=== PATIENT | male | born 1965 | race Caucasian/White ===

== ENCOUNTER 2017-07-26 10:50 | Emergency (ER) | payer BC, OTHER ==
[2017-07-26] MEDS ORDERED: ORPHENADRINE 30 MG/ML 2 ML VIAL IM STA (11:45)
[2017-07-26] MEDS ORDERED: KETOROLAC 60 MG/2 ML VIAL IM STA (11:45)
[2017-07-26 12:06] LABS: Appearance,Urine Clear (Clear); Bilirubin,Urine Negative (Negative); Blood,Urine Negative (Negative); Color,Urine Yellow; Glucose,Urine (UA) Negative (Negative); Ketones,Urine Negative (Negative); Leukocyte Esterase,Urine Negative (Negative); Nitrite,Urine Negative (Negative); PH, Urine 5.5 (5.0-8.0); Protein,Urine Negative (Negative); Specific Gravity,Urine 1.011 (1.001-1.035); Urobilinogen,Urine <2.0 mg/dL (<2.0)
--- NOTE | 2017-07-26 12:27 | XR ---
EXAMINATION TYPE: XR lumbar spine 2 or 3V , 3 VIEWS DATE OF EXAM ORDERED: 07/26/2017 HISTORY: Pain. COMPARISON: None. FINDINGS: Vertebral body height and alignment are maintained. There is mild hypertrophic spondylosis at T11-12 and L3-4 there is mild facet arthropathy in the L5-S1 facets. The pedicles are intact.. IMPRESSION: 1. NO ACUTE OSSEOUS LESION. 2. MILD DEGENERATIVE CHANGE.
--- NOTE | 2017-07-26 12:28 | XR ---
EXAMINATION TYPE: XR thoracic spine 2V , 4 VIEWS DATE OF EXAM ORDERED: 07/26/2017 HISTORY: Pain. COMPARISON: None. FINDINGS: Number thoracic spine is not well visualized and the lateral projection. Vertebral body height and alignment are maintained. No fractures are seen. There is mild hypertrophic spondylosis in the mid to lower dorsal spine. The pedicles appear intact. Paraspinal soft tissues ar e normal. IMPRESSION: 1. NO ACUTE OSSEOUS LESION. 2. MILD DEGENERATIVE CHANGE.
--- NOTE | 2017-07-26 12:33 | ED ---
Back Pain HPI - General Chief Complaint: Back Pain/Injury Stated Complaint: UPPER BACK PAIN, RT SIDE GROIN PAIN Time Seen by Provider: 07/26/17 11:29 Source: patient, RN notes reviewed, old records reviewed Limitations: no limitations - History of Present Illness Initial Comments: 52-year-old male presents for his department with 3 days of mid thoracic and lower back pain with certain movements. No urinary symptoms. No saddle and seems to be no traumas or falls. He reports is worse with eating of the morning or certain movements was laying in bed. He denies any abdominal pain, nausea or vomiting or fever. Patient states that he's had no known history of degenerative disc disease. 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 He reports taking meloxicam for chronic arthritis pain. Reports that helped somewhat but is not been helping over the past few days.Patient denies any recent fever, chills, shortness of breath, chest pain, back pain, abdominal pain , nausea vomiting, numbness or tingling, dysuria or hematuria, constipation or diarrhea, headaches or visual changes, or any other current symptoms - Related Data Home Medications Medication Instructions Recorded Confirmed Lisinopril-Hctz 20-25 mg 1 tab PO DAILY 12/14/14 07/26/17 [Zestoretic 20-25] amLODIPine [Norvasc] 10 mg PO DAILY 12/14/14 07/26/17 Atorvastatin [Lipitor] 40 mg PO DAILY 07/26/17 07/26/17 Meloxicam 7.5 mg PO HS 07/26/17 07/26/17 Vitamin B Complex 1 cap PO DAILY 07/26/17 07/26/17 Previous Rx's Medication Instructions Recorded Cyclobenzaprine [Flexeril] 10 mg PO TID #15 tab 07/26/17 Dexamethasone 0.75 mg PO DAILY #12 tab 07/26/17 HYDROcodone/APAP 5-325MG [Lee 1 tab PO Q6HR PRN #15 tab 07/26/17 5-325] Allergies Allergy/AdvReac Type Severity Reaction Status Date / Time bee venom protein (honey bee) Allergy Swelling Verified 07/26/17 12:23 Review of Systems ROS Statement: Those systems with pertinent positive or pertinent negative responses have been documented in the HPI. ROS Other: All systems not noted in ROS Statement are negative. Past Medical History Past Medical History: Hyperlipidemia, Hypertension History of Any Multi-Drug Resistant Organisms: None Reported Past Surgical History: Appendectomy, Orthopedic Surgery, Tonsillectomy Additional Past Surgical History / Comment(s): LEFT KNEE, BENIGN CYST REMOVED FROM SCALP Past Anesthesia/Blood Transfusion Reactions: No Reported Reaction Past Psychological History: No Psychological Hx Reported Smoking Status: Current every day smoker Past Alcohol Use History: Occasional Past Drug Use History: None Reported General Exam - General Exam Comments Initial Comments: His is a 52-year-old male. No distress. Limitations: no limitations General appearance: alert, in no apparent distress Head exam: Present: atraumatic, normocephalic, normal inspection Eye exam: Present: normal appearance, PERRL, EOMI. Absent: scleral icterus, conjunctival injection, periorbital swelling ENT exam: Present: normal exam, mucous membranes moist Neck exam: Present: normal inspection. Absent: tenderness, meningismus, lymphadenopathy Respiratory exam: Present: normal lung sounds bilaterally. Absent: respiratory distress, wheezes, rales, rhonchi, stridor Cardiovascular Exam: Present: regular rate, normal rhythm, normal heart sounds. Absent: systolic murmur, diastolic murmur, rubs, gallop, clicks GI/Abdominal exam: Present: soft, normal bowel sounds. Absent: distended, tenderness, guarding, rebound, rigid Extremities exam: Present: normal inspection, full ROM, normal capillary refill. Absent: tenderness, pedal edema, joint swelling, calf tenderness Back exam: Present: normal inspection, paraspinal tenderness (Right-sided thoracic and lumbar spine paraspinal tenderness.) Neurological exam: Present: alert, oriented X3, CN II-XII intact Psychiatric exam: Present: normal affect, normal mood Skin exam: Present: warm, dry, intact, normal color. 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 No urinary symptoms. No numbness or tingling down the leg. Patient's urinalysis negative for any signs of infection. Lumbar and thoracic spine x-ray were reviewed and show no acute fractures or dislocations. Patient was reports he feels better after IM Norflex , and Toradol. I discussed that I'll discharge the patient with a round of steroids for nerve inflammation as well as pain medication and muscle relaxers. Discussed continuing and temperature medication such as Motrin and continues meloxicam for arthritic pain. Discussed falling up with primary care provider as well as report specialist. Patient agrees treatment plan will comply. Return parameters were discussed. - Lab Data Lab Results 07/26/17 Range/Units 11:48 Urine Color Yellow Urine Appearance Clear (Clear) Urine pH 5.5 (5.0-8.0) Ur Specific [place] 1.011 (1.001-1.035) Urine Protein Negative (Negative) Urine Glucose (UA) Negative (Negative) Urine Ketones Negative (Negative) Urine Blood Negative (Negative) Urine Nitrite Negative (Negative) Urine Bilirubin Negative (Negative) Urine Urobilinogen <2.0 (<2.0) mg/dL Ur Leukocyte Esterase Negative (Negative) - Radiology Data Radiology results: report reviewed Thoracic spine x-ray lumbar spine x-ray reviewed. No significant abnormalities noted. Disposition Clinical Impression: Spasm of thoracic back muscle, Lumbar strain Disposition: HOME SELF-CARE Condition: Good Instructions: Acute Low Back Pain (ED) Additional Instructions: Patient resting medications as prescribed. Continue to do warm compresses to the back and spine. Return to the emergency department if any alarming signs or symptoms occur. Prescriptions: Cyclobenzaprine [Flexeril] 10 mg PO TID #15 tab Dexamethasone 0.75 mg PO DAILY #12 tab HYDROcodone/APAP 5-325MG [Lee 5-325] 1 tab PO Q6HR PRN #15 tab PRN Reason: Pain Referrals: Anil Anthony MD [Primary Care Provider] - 1-2 days Time of Disposition: 13:03
[2017-07-26 13:12] VITALS: BP 149/87; PULSE 63; RESP 20; TEMP 97.3
== END 2017-07-26 13:19 | disposition home or self-care (01) ==
LOC: EC 10:50
DX: S39.012A Strain of muscle, fascia and tendon of lower back, initial encounter (principal); M62.830 Muscle spasm of back; E78.5 Hyperlipidemia, unspecified; I10 Essential (primary) hypertension; M19.90 Unspecified osteoarthritis, unspecified site; F17.200 Nicotine dependence, unspecified, uncomplicated; Z79.1 Long term (current) use of non-steroidal anti-inflammatories (NSAID); Z79.899 Other long term (current) drug therapy; Z91.030 Bee allergy status; X58.XXXA Exposure to other specified factors, initial encounter
CPT/HCPCS: 81003; 87086; 72070; 72100; 99284; 96372 ×2; J2360; J1885

== ENCOUNTER → 2017-12-18 | Outpatient (CLI) | payer OTHER ==
--- NOTE | 2017-12-18 23:17 | MR ---
EXAMINATION TYPE: MR femur/thigh RT wo con DATE OF EXAM: 12/18/2017 COMPARISON: NONE HISTORY: Rt thigh pain, swelling into knee joint, limited movement x 1 year Standard multiplanar, multisequence MRI departmental protocol Multiplanar, multisequence images of the right femur were acquired. FINDINGS: There is a very large knee joint effusion that extends to 14 cm proximal to the knee joint. There is some spurring of the medial femoral and tibial condyles. The mid and distal femur appear in tact. I see no bony destructive process. There is no evidence of a soft tissue mass. There is horizon cornell signal in the anterior and posterior horns of the medial meniscus. There appears to be complete t ear of the anterior cruciate ligament. IMPRESSION: Very large knee joint effusion. No evidence of a solid thigh mass. Mild osteoarthritic narrowing in t he medial joint space of the right knee. Anterior cruciate ligament tear. Large horizontal tear of the posterior horn of the medial meniscus a nd a smaller horizontal tear anterior horn of the medial meniscus.
== END ==
LOC: RADMRIMAIN 20:09
PROVIDERS: ATTEND Psychiatry & Neurology Neurology
DX: M25.461 Effusion, right knee (principal); M17.11 Unilateral primary osteoarthritis, right knee; S83.511A Sprain of anterior cruciate ligament of right knee, initial encounter; S83.241A Other tear of medial meniscus, current injury, right knee, initial encounter; X58.XXXA Exposure to other specified factors, initial encounter

== ENCOUNTER 2018-03-23 10:50 | Emergency (ER) | payer OTHER ==
[2018-03-23 10:59] VITALS: RESP 18
[2018-03-23] MEDS ORDERED: methylPREDNISolone SOD SUCCI 125 MG/2 ML VIAL IV STA (11:07)
[2018-03-23] MEDS ORDERED: FAMOTIDINE 20 MG/2 ML VIAL IV STA (11:07)
--- NOTE | 2018-03-23 11:17 | ED ---
General Adult HPI - General Chief complaint: Allergic Reaction Stated complaint: Bee sting/allergic/throat swelling Time Seen by Provider: 03/23/18 11:04 Source: patient, family, RN notes reviewed Mode of arrival: ambulatory Limitations: no limitations - History of Present Illness Initial comments: Patient's a 53-year-old male presented to the emergency room today with chief complaint of the sting to the left side of the face that occurred 2 hours ago. Patient states that was stung to the left wrist and twice on the left side of the face. Patient does admit that his noticed some swelling across the left side of the neck. Denies any difficulty of breathing or swelling. Patient denies any recent fever, chills, shortness of breath, chest pain, back pain, abdominal pain, nausea or vomiting, numbness or tingling, headaches or visual changes, or any other complaints. - Related Data Home Medications Medication Instructions Recorded Confirmed Lisinopril-Hctz 20-25 mg 1 tab PO DAILY 12/14/14 07/26/17 [Zestoretic 20-25] amLODIPine [Norvasc] 10 mg PO DAILY 12/14/14 07/26/17 Atorvastatin [Lipitor] 40 mg PO DAILY 07/26/17 07/26/17 Meloxicam 7.5 mg PO HS 07/26/17 07/26/17 Vitamin B Complex 1 cap PO DAILY 07/26/17 07/26/17 Previous Rx's Medication Instructions Recorded Cyclobenzaprine [Flexeril] 10 mg PO TID #15 tab 07/26/17 Dexamethasone 0.75 mg PO DAILY #12 tab 07/26/17 HYDROcodone/APAP 5-325MG [[place] 1 tab PO Q6HR PRN #15 tab 07/26/17 5-325] EPINEPHrine [Epipen 2-Dada] 0.3 mg IM ONCE PRN #1 ml 03/23/18 Famotidine [Pepcid] 20 mg PO BID #20 tablet 03/23/18 diphenhydrAMINE [Benadryl] 1 - 2 tab PO Q6HR PRN #30 capsule 03/23/18 predniSONE 50 mg PO DAILY #5 tab 03/23/18 Allergies Allergy/AdvReac Type Severity Reaction Status Date / Time bee venom protein (honey bee) Allergy Swelling Verified 03/23/18 10:58 Review of Systems ROS Statement: Those systems with pertinent positive or pertinent negative responses have been documented in the HPI. ROS Other: All systems not noted in ROS Statement are negative. Past Medical History Past Medical History: Hyperlipidemia, Hypertension History of Any Multi-Drug Resistant Organisms: None Reported Past Surgical History: Appendectomy, Orthopedic Surgery, Tonsillectomy Additional Past Surgical History / Comment(s): LEFT KNEE, BENIGN CYST REMOVED FROM SCALP Past Anesthesia/Blood Transfusion Reactions: No Reported Reaction Past Psychological History: No Psychological Hx Reported Smoking Status: Current every day smoker Past Alcohol Use History: Occasional Past Drug Use History: None Reported General Exam - General Exam Comments Initial Comments: General: The patient is awake and alert, in no distress, and does not appear acutely ill. Eye: Pupils are equal, round and reactive to light, extra-ocular movements are intact. No nystagmus. There is normal conjunctiva bilaterally. No signs of icterus. Ears, nose, mouth and throat: There are moist mucous membranes and no oral lesions. Neck: The neck is supple, there is no tenderness or JVD. Cardiovascular: There is a regular rate and rhythm. No murmur, rub or gallop is appreciated. Respiratory: Lungs are clear to auscultation, respirations are non-labored, breath sounds are equal. No wheezes, stridor, rales, or rhonchi. Musculoskeletal: Normal ROM, no tenderness. Sensation intact. Neurological: A&O x 3. CN II-XII intact, There are no obvious motor or sensory deficits. Coordination appears grossly intact. Speech is normal. Skin: Mild swelling left side neck was some redness. Psychiatric: Cooperative, appropriate mood & affect, normal judgment. Limitations: no limitations Course Vital Signs 03/23/18 10:57 Temperature 97.9 F Pulse Rate 95 Respiratory 18 Rate Blood Pressure 159/94 O2 Sat by Pulse 97 Oximetry Medical Decision Making - Medical Decision Making Patient reexamined at this time shows no signs of distress. Resting comfortably. Denies symptoms at this time. She is feeling much better. No difficulty breathing or swallowing. No swelling. Patient will be discharged home and he'll be continued on steroids, Benadryl, Pepcid. He'll be given a prescription for an EpiPen. He is advised to follow-up with the family physician returning here to the emergency room for any symptoms increase or worsen. Disposition Clinical Impression: Allergic reaction to bee sting Disposition: HOME SELF-CARE Condition: Good Instructions: Anaphylaxis (ED) Additional Instructions: Please use medication as discussed. Please follow-up with family doctor in the next 2 days of symptoms have not improved. Please return to emergency room if the symptoms increase or worsen or for any other concerns. Prescriptions: diphenhydrAMINE [Benadryl] 1 - 2 tab PO Q6HR PRN #30 capsule PRN Reason: Allergic Reaction EPINEPHrine [Epipen 2-Dada] 0.3 mg IM ONCE PRN #1 ml PRN Reason: Allergic Reaction Famotidine [Pepcid] 20 mg PO BID #20 tablet predniSONE 50 mg PO DAILY #5 tab Is patient prescribed a controlled substance at d/c from ED?: No Referrals: Anil Anthony MD [Primary Care Provider] - 1-2 days Time of Disposition: 12:35
[2018-03-23 13:06] VITALS: BP 149/97; PULSE 63; TEMP 98.8
== END 2018-03-23 13:04 | disposition home or self-care (01) ==
LOC: EC 10:50
DX: T63.441A Toxic effect of venom of bees, accidental (unintentional), initial encounter (principal); E78.5 Hyperlipidemia, unspecified; I10 Essential (primary) hypertension; F17.200 Nicotine dependence, unspecified, uncomplicated; Z98.890 Other specified postprocedural states; Z79.1 Long term (current) use of non-steroidal anti-inflammatories (NSAID); Z79.899 Other long term (current) drug therapy; Z91.030 Bee allergy status
CPT/HCPCS: 99283; 96374; 96375; J2930

== ENCOUNTER → 2021-10-11 | Outpatient (CLI) | payer BC ==
--- NOTE | 2021-10-11 10:11 | ECHOF ---
Referral Reason:R01.1 Murmur MEASUREMENTS -------- HEIGHT: 177.8 cm WEIGHT: 102.1 kg BP: 157/96 RVIDd: 3.4 cm (< 3.3) IVSd: 1.1 cm (0.6 - 1.1) LVIDd: 4.9 cm (3.9 - 5.3) LVPWd: 1.1 cm (0.6 - 1.1) IVSs: 1.9 cm LVIDs: 3.1 cm LVPWs: 2.0 cm LA Diam: 3.7 cm (2.7 - 3.8) LAESV Index (A-L): 16.92 ml/m Ao Diam: 4.1 cm (2.0 - 3.7) AV Cusp: 2.1 cm (1.5 - 2.6) MV EXCURSION: 19.523 mm (> 18.000) MV EF SLOPE: 97 mm/s (70 - 150) EPSS: 0.9 cm MV E Jeremiah: 0.77 m/s MV DecT: 249 ms MV A Jeremiah: 0.87 m/s MV E/A Ratio: 0.89 FINDINGS -------- Sinus rhythm. This was a technically adequate study. The left ventricular size is normal. There is borderline concentric left ventricular hypertrophy. Overall left ventricular systolic function is normal with, an EF between 60 - 65 %. The right ventricle is normal in size. Normal LA size by volume 22+/-6 ml/m2. The right atrium is normal in size. Interatrial and interventricular septum intact. The aortic valve is trileaflet, and appears structurally normal. No aortic stenosis or regurgitation. The mitral valve is normal. The tricuspid valve appears structurally normal. Unable to estimate RVSP due to inadequate TR jet s pectral doppler profile. The pulmonic valve was not well visualized. The aortic root is dilated measuring 4.1cm. Normal inferior vena cava with normal inspiratory collapse consistent with estimated right atrial pre ssure of 5 mmHg. There is no pericardial effusion. CONCLUSIONS -------- 1. The left ventricular size is normal. 2. There is borderline concentric left ventricular hypertrophy. 3. Overall left ventricular systolic function is normal with, an EF between 60 - 65 %. 4. The right ventricle is normal in size. 5. Normal LA size by volume 22+/-6 ml/m2. 6. The aortic root is dilated measuring 4.1cm. 7. There is no pericardial effusion. RESEARCH ENVIRONMENTAL ENGINEER: Claudia Escalante RDCS
== END | disposition home or self-care (01) ==
LOC: RADECHMAIN 08:09
PROVIDERS: ATTEND Family Medicine
DX: I51.7 Cardiomegaly (principal)
CPT/HCPCS: 93306